=== PATIENT | female | born 1975 | race Caucasian/White ===

== ENCOUNTER 2022-09-03 16:00 | Emergency (ER) | payer SELFPAY ==
[2022-09-03 17:29] VITALS: BP 132/89; PULSE 127
[2022-09-03] MEDS ORDERED: Sulfamethoxazole/Trimethoprim 800-160 MG Tab ONE (18:00)
[2022-09-03 18:06] LABS: TROPONIN I HIGH SENSITIVITY 4.5 pg/ml (<=60.4)
== END 2022-09-03 18:50 | disposition home or self-care (01) ==
LOC: LB.ED 16:00
DX: N39.0 Urinary tract infection, site not specified (principal); E83.42 Hypomagnesemia; E03.9 Hypothyroidism, unspecified; E11.9 Type 2 diabetes mellitus without complications; F17.200 Nicotine dependence, unspecified, uncomplicated; Z20.822 Contact with and (suspected) exposure to COVID-19; Z79.4 Long term (current) use of insulin; Z79.899 Other long term (current) drug therapy
CPT/HCPCS: 36415; 71045; 80053; 81001; 82947; 83735; 84484; 85025; 85379; 87086; 87804; 87804-59; 93005; 99284; A9270-GY; U0002

== ENCOUNTER 2022-09-24 16:23 | Emergency (ER) | payer SELFPAY ==
[2022-09-24] MEDS ORDERED: Ketorolac 60 MG/2 ML SDV IM ONE (16:45)
[2022-09-24] MEDS ORDERED: Ondansetron 4 MG Tab.DIS PO ONE (16:45)
[2022-09-24] MEDS ORDERED: Ketorolac 60 MG/2 ML SDV ONE (16:56)
[2022-09-24] MEDS ORDERED: Ondansetron 4 MG Tab.DIS ONE (16:57)
== END 2022-09-24 17:55 | disposition home or self-care (01) ==
LOC: LB.ED 16:23
DX: U07.1 COVID-19 (principal); G43.909 Migraine, unspecified, not intractable, without status migrainosus; E11.9 Type 2 diabetes mellitus without complications; E03.9 Hypothyroidism, unspecified; E66.9 Obesity, unspecified; Z68.30 Body mass index [BMI] 30.0-30.9, adult
CPT/HCPCS: 87635; 96372; 99284; J1885; Q0162; 99283; U0002

== ENCOUNTER 2023-02-18 14:31 | Inpatient (IN) | payer MEDICAID ==
[2023-02-18] MEDS ORDERED: Sodium Chloride 0.9% 10 ML Syringe FLUSH PRN (14:57)
[2023-02-18 15:23] LABS: HEMATOCRIT 41.7 % (37.0-47.0); HEMOGLOBIN 14.3 g/dL (11.5-16.5); MEAN CORPUSCULAR HEMOGLOBIN 31.2 pg (27.0-32.0); MEAN CORPUSCULAR HGB CONC 34.3 g/dL (31.0-35.0); MEAN PLATELET VOLUME 10.5 fL (6.0-10.0); RED BLOOD CELL COUNT 4.59 M/uL (3.80-5.80); RED CELL DISTRIBUTION WIDTH 12.1 % (11.0-16.0); WHITE BLOOD CELL COUNT,WBC 9.9 K/uL (4.0-11.0)
[2023-02-18 15:44] LABS: HEMOGLOBIN A1C 13.6 % (< 5.7)
[2023-02-18 15:53] LABS: A/G RATIO 0.8 (0.8-2.0); ALBUMIN 3.8 g/dL (3.4-5.0); ANION GAP 15.5 mmol/L (5.0-15.0); BILIRUBIN TOTAL 0.5 mg/dL (0.0-1.0); BUN/CREATININE RATIO 12.1 (6-25); CARBON DIOXIDE,CO2 26.5 mmol/L (21.0-32.0); CREATININE 1.07 mg/dL (0.55-1.02); EST CRCL DRUG DOSING (CG) 49.05 mL/min; MAGNESIUM 1.4 mg/dL (1.8-2.4); PHOSPHORUS 4.1 mg/dL (2.5-4.9); PROTEIN TOTAL,TP 8.6 g/dL (6.4-8.2)
[2023-02-18 16:01] LABS: APPEARANCE,URINE CLEAR (CLEAR); BILIRUBIN,URINE NEGATIVE (NEGATIVE); COLOR,URINE YELLOW; GLUCOSE,URINE >=1000 mg/dL (NEGATIVE); KETONES,URINE NEGATIVE (NEGATIVE); LEUKOCYTE ESTERASE,URINE TRACE (NEGATIVE); NITRITE,URINE NEGATIVE (NEGATIVE); OCCULT BLOOD,URINE TRACE-INTACT (NEGATIVE); PH,URINE 5.5 (5.0-8.0); PROTEIN,URINE TRACE mg/dL (NEGATIVE); UROBILINOGEN,URINE 0.2 E.U./dL (0.2-1.0)
[2023-02-18] MEDS ORDERED: Insulin Regular, Human 100 Units/ML 3 ML Vial IV ONE (16:07)
[2023-02-18] MEDS ORDERED: Sodium Chloride 0.9% 1,000 ML IV SCH (16:15)
[2023-02-18 16:16] LABS: RBC,URINE 0-5 /HPF; SQUAMOUS EPITHELIAL CELLS,UR MANY /HPF; WBC,URINE 50-75 /HPF
[2023-02-18] MEDS ORDERED: Albuterol 8 GM Inhaler INH PRN (18:24)
[2023-02-18] MEDS: Sodium Chloride 0.9% 1,000 ML IV SCH (18:45)
[2023-02-18] MEDS: DULoxetine 20 MG Cap PO SCH (19:47)
[2023-02-18] MEDS: Sulfamethoxazole/Trimethoprim 800-160 MG Tab PO SCH (19:47)
[2023-02-18] MEDS ORDERED: Insulin Regular, Human 100 Units/ML 3 ML Vial SUBCUT ONE ×2 (21:55→23:08)
[2023-02-18] MEDS ORDERED: 50% Dextrose in Water 50 ML Syringe IVPUSH PRN ×4 (21:55→23:09)
[2023-02-18] MEDS ORDERED: Glucagon,Human Recombinant 1 MG Vial IM PRN ×4 (21:55→23:09)
[2023-02-18] MEDS: Insulin Glargine,Human Rec. Analog 100 Units/ML 3 ML Pen SUBCUT SCH (23:39)
[2023-02-19] MEDS: Sodium Chloride 0.9% 1,000 ML IV SCH (06:06)
[2023-02-19] MEDS ORDERED: Insulin NPH/Insulin Regular,Human 70-30 100 Units/ML 10 ML Vial SUBCUT SCH (07:00)
[2023-02-19] MEDS: Insulin Regular, Human 100 Units/ML 3 ML Vial SUBCUT SCH ×3 (08:23→17:09)
[2023-02-19] MEDS: Levothyroxine 150 MCG Tab PO SCH (08:24)
[2023-02-19] MEDS: Insulin Glargine,Human Rec. Analog 100 Units/ML 3 ML Pen SUBCUT SCH ×2 (08:24→20:08)
[2023-02-19] MEDS: Sulfamethoxazole/Trimethoprim 800-160 MG Tab PO SCH ×2 (08:25→20:08)
[2023-02-19] MEDS: atorvaSTATin 20 MG Tab PO SCH (08:25)
[2023-02-19] MEDS ORDERED: Glucagon,Human Recombinant 1 MG Vial IM PRN (12:01)
[2023-02-19] MEDS ORDERED: 50% Dextrose in Water 50 ML Syringe IVPUSH PRN (12:01)
[2023-02-19] MEDS ORDERED: Insulin Regular, Human 100 Units/ML 3 ML Vial SUBCUT ONE (12:01)
[2023-02-19 12:59] LABS: A/G RATIO 0.8 (0.8-2.0); ALBUMIN 3.1 g/dL (3.4-5.0); BILIRUBIN TOTAL 0.3 mg/dL (0.0-1.0); CALCIUM 8.8 mg/dL (8.5-10.1); CARBON DIOXIDE,CO2 26.8 mmol/L (21.0-32.0); CREATININE 0.92 mg/dL (0.55-1.02); EST CRCL DRUG DOSING (CG) 57.04 mL/min; POTASSIUM,K 3.8 mmol/L (3.5-5.1); PROTEIN TOTAL,TP 7.1 g/dL (6.4-8.2)
[2023-02-19] MEDS: DULoxetine 20 MG Cap PO SCH (20:08)
[2023-02-19] MEDS ORDERED: Insulin NPH/Insulin Regular,Human 70-30 100 Units/ML 10 ML Vial SUBCUT ONE (21:37)
[2023-02-20] MEDS: Insulin Regular, Human 100 Units/ML 3 ML Vial SUBCUT SCH ×3 (07:49→17:28)
[2023-02-20] MEDS: atorvaSTATin 20 MG Tab PO SCH (07:51)
[2023-02-20] MEDS: Insulin Glargine,Human Rec. Analog 100 Units/ML 3 ML Pen SUBCUT SCH ×2 (07:51→19:49)
[2023-02-20] MEDS: Levothyroxine 150 MCG Tab PO SCH (07:51)
[2023-02-20] MEDS: Sulfamethoxazole/Trimethoprim 800-160 MG Tab PO SCH ×2 (07:52→19:48)
[2023-02-20] MEDS: DULoxetine 20 MG Cap PO SCH (19:48)
[2023-02-20] MEDS ORDERED: Acetaminophen 500 MG Tab PO ONE (22:23)
[2023-02-20] MEDS ORDERED: Acetaminophen 500 MG Tab ONE (22:28)
[2023-02-21] MEDS: Insulin Glargine,Human Rec. Analog 100 Units/ML 3 ML Pen SUBCUT SCH ×2 (08:20→19:38)
[2023-02-21] MEDS: Insulin Regular, Human 100 Units/ML 3 ML Vial SUBCUT SCH ×3 (08:21→17:08)
[2023-02-21] MEDS: Levothyroxine 150 MCG Tab PO SCH (08:22)
[2023-02-21] MEDS: atorvaSTATin 20 MG Tab PO SCH (08:22)
[2023-02-21] MEDS: Sulfamethoxazole/Trimethoprim 800-160 MG Tab PO SCH ×2 (08:22→19:38)
[2023-02-21 08:48] LABS: A/G RATIO 0.8 (0.8-2.0); ALBUMIN 3.4 g/dL (3.4-5.0); ANION GAP 9.3 mmol/L (5.0-15.0); BILIRUBIN TOTAL 0.6 mg/dL (0.0-1.0); BUN/CREATININE RATIO 14.1 (6-25); CALCIUM 9.3 mg/dL (8.5-10.1); CARBON DIOXIDE,CO2 31.2 mmol/L (21.0-32.0); CREATININE 0.92 mg/dL (0.55-1.02); EST CRCL DRUG DOSING (CG) 57.04 mL/min; POTASSIUM,K 4.5 mmol/L (3.5-5.1); PROTEIN TOTAL,TP 7.9 g/dL (6.4-8.2)
[2023-02-21] MEDS: Cyclobenzaprine 5 MG Tab PO PRN (17:11)
[2023-02-21] MEDS: DULoxetine 20 MG Cap PO SCH (19:38)
[2023-02-22] MEDS: atorvaSTATin 20 MG Tab PO SCH (07:40)
[2023-02-22] MEDS: Insulin Glargine,Human Rec. Analog 100 Units/ML 3 ML Pen SUBCUT SCH ×2 (07:40→20:13)
[2023-02-22] MEDS: Insulin Regular, Human 100 Units/ML 3 ML Vial SUBCUT SCH ×3 (07:40→17:19)
[2023-02-22] MEDS: Sulfamethoxazole/Trimethoprim 800-160 MG Tab PO SCH ×2 (07:40→20:04)
[2023-02-22] MEDS: Levothyroxine 150 MCG Tab PO SCH (07:40)
[2023-02-22] MEDS: Cyclobenzaprine 5 MG Tab PO PRN (16:15)
[2023-02-22] MEDS ORDERED: Insulin Glargine,Human Rec. Analog 100 Units/ML 3 ML Pen SUBCUT ONE (19:55)
[2023-02-22] MEDS ORDERED: Glucagon,Human Recombinant 1 MG Vial IM PRN (19:55)
[2023-02-22] MEDS ORDERED: 50% Dextrose in Water 50 ML Syringe IVPUSH PRN (19:55)
[2023-02-22] MEDS: DULoxetine 20 MG Cap PO SCH (20:04)
[2023-02-22] MEDS ORDERED: traMADol 50 MG Tab PO PRN (20:12)
[2023-02-22] MEDS ORDERED: traMADol 50 MG Tab ONE (20:15)
[2023-02-23] MEDS: Insulin Regular, Human 100 Units/ML 3 ML Vial SUBCUT SCH (09:00)
[2023-02-23] MEDS: atorvaSTATin 20 MG Tab PO SCH (09:02)
[2023-02-23] MEDS: Levothyroxine 150 MCG Tab PO SCH (09:02)
[2023-02-23] MEDS: Sulfamethoxazole/Trimethoprim 800-160 MG Tab PO SCH (09:02)
[2023-02-23] MEDS ORDERED: 50% Dextrose in Water 50 ML Syringe IVPUSH PRN (09:16)
[2023-02-23] MEDS ORDERED: Insulin Glargine,Human Rec. Analog 100 Units/ML 3 ML Pen SUBCUT ONE (09:17)
[2023-02-23] MEDS: Insulin Glargine,Human Rec. Analog 100 Units/ML 3 ML Pen SUBCUT SCH (09:24)
[2023-02-25 04:12] LABS: HBSAG SCREEN Negative (Negative); HCV AB Non Reactive (Non Reactive); HEP A AB, IGM Negative (Negative); HEP B CORE AB, IGM Negative (Negative)
== END 2023-02-23 11:20 | disposition home or self-care (01) | DRG 638 ==
LOC: LB.ED 14:31 → LB.MS 16:57 → UNDOADMIN 17:00 → LB.MS 17:00
PROVIDERS: ADMIT Surgery; ATTEND Surgery
DX: E11.65 Type 2 diabetes mellitus with hyperglycemia (principal); E87.1 Hypo-osmolality and hyponatremia; N17.9 Acute kidney failure, unspecified; N39.0 Urinary tract infection, site not specified; Z68.42 Body mass index [BMI] 45.0-49.9, adult; J45.909 Unspecified asthma, uncomplicated; F32.A Depression, unspecified; E03.9 Hypothyroidism, unspecified; E66.9 Obesity, unspecified; E87.8 Other disorders of electrolyte and fluid balance, not elsewhere classified; R74.01 Elevation of levels of liver transaminase levels; Z79.4 Long term (current) use of insulin; Z79.899 Other long term (current) drug therapy; Z90.89 Acquired absence of other organs
CPT/HCPCS: 36415; 80053; 80074; 81001; 81025; 82947; 83036; 83735; 84100; 85027; 87086; 96360; 99284-25; A9270-GY; J1815-GY; J7030